=== PATIENT | male | born 1980 | race Caucasian/White ===

== ENCOUNTER 2018-08-19 05:34 | Day surgery (SDC) | payer OTHER ==
[2018-08-19] MEDS ORDERED: LR 1,000 ML IV ONE (05:50)
[2018-08-19] MEDS ORDERED: LIDOCAINE 1% 2 ML INJ ID PRN (05:50)
[2018-08-19] MEDS ORDERED: ACETAMINOPHEN 500 MG TAB PO ONE (06:08)
[2018-08-19] MEDS ORDERED: GABAPENTIN 300 MG CAP PO ONE (06:08)
[2018-08-19] MEDS ORDERED: ceFAZolin 2 GM/DEXTROSE 100 ML IV ONE (06:08)
--- NOTE | 2018-08-19 06:10 | PDHPUP ---
History & Physical Update H&P update statement: This history and physical update is based on an assessment of the patient which was completed after admission or registration (within 24 hours), but prior to the surgery/procedure. H&P update: H&P reviewed & patient examined, no change in patient's condition since H&P completed
[2018-08-19] MEDS ORDERED: CHLORHEXIDINE GLUC HIBICLENS 118 ML BTL TP ONE (06:29)
[2018-08-19] MEDS ORDERED: BUPIVACAINE 0.25% 30 ML SDV ONE (06:30)
[2018-08-19] MEDS ORDERED: THROMBIN (BOVINE) 5,000 UNIT VIAL TP ONE (06:30)
[2018-08-19] MEDS ORDERED: EPINEPHrine 1 MG/ML INJ ONE (06:31)
[2018-08-19] MEDS ORDERED: BACITRACIN 50,000 UNITS/10 ML SYR IRR ONE (06:31)
--- NOTE | 2018-08-19 06:53 | PDANEPAE ---
ANE History of Present Illness lumbar diskectomy ANE Past Medical History - Cardiovascular History Hx Hypertension: No Hx Arrhythmias: No Hx Chest Pain: No Hx Coronary Artery / Peripheral Vascular Disease: No Hx CHF / Valvular Disease: No Hx Palpitations: No - Pulmonary History Hx COPD: No Hx Asthma/Reactive Airway Disease: Yes Hx Recent Upper Respiratory Infection: No Hx Oxygen in Use at Home: No Hx Sleep Apnea: No Sleep Apnea Screening Result - Last Documented: Negative Pulmonary History Comment: ASTHMA TRIGGERS EXERCISE INDUCED NO INHALER USED FOR. 2 MONTHS. SEASONAL ALLERGIES - Neurologic History Hx Cerebrovascular Accident: No Hx Seizures: No Hx Dementia: No - Endocrine History Hx Diabetes: No - Renal History Hx Renal Disorders: No - Liver History Hx Hepatic Disorders: No - Neurological & Psychiatric Hx Hx Neurological and Psychiatric Disorders: No - Cancer History Hx Cancer: No - Congenital Disorder History Hx Congenital Disorders: No - GI History Hx Gastrointestinal Disorders: Yes Gastrointestinal History Comment: ONCE A MONTH HAS SOME DIFFICULTY WITH SWALLOWING - Other Health History Other Health History: SPINAL STENOSIS. DANIKA FOOT N/T - Chronic Pain History Chronic Pain: Yes (RT BUTTOCKS,RT KNEE) - Surgical History Prior Surgeries: WISDOM TEETH. MADDY'S ANE Review of Systems Review of Systems: - Exercise capacity METS (RN): 4 METS ANE Patient History - Allergies Allergies/Adverse Reactions: No Known Allergies Allergy (Unverified 08/18/18 15:38) - Home Medications Home medications: home medication list seen and reviewed Home Medications: ALBUTEROL SULFATE PRN 08/18/18 [Last Taken Unknown] - NPO status NPO Status: no food or drink >8 hours NPO Since - Liquids (Date): 08/18/18 NPO Since - Liquids (Time): 21:00 NPO Since - Solids (Date): 08/18/18 NPO Since - Solids (Time): 21:00 - Smoking Hx Smoking Status: Never smoked - Alcohol Use Alcohol Use: Rarely - Family Anes Hx Family Anes Hx: none Family Hx Anesthesia Complications: NEG ANE Labs/Vital Signs - Vital Signs Blood Pressure: 134/90 Heart Rate: 93 Respiratory Rate: 16 O2 Sat (%): 93 Height: 187.96 cm Weight: 95.254 kg ANE Physical Exam - Airway Neck exam: FROM Mallampati Score: Class 2 Mouth exam: normal dental/mouth exam - Pulmonary Pulmonary: no respiratory distress - Cardiovascular Cardiovascular: regular rate and rhythym - ASA Status ASA Status: I ANE Anesthesia Plan Anesthesia Plan: general endotracheal anesthesia
[2018-08-19] MEDS ORDERED: REMIFENTANIL HCL 1 MG VIAL ONE (07:06)
[2018-08-19] MEDS ORDERED: PROPOFOL/EMULSION 500 MG/50 ML BOTTLE IV ONE (07:06)
[2018-08-19] MEDS ORDERED: fentaNYL 100 MCG/2 ML INJ ONE (07:06)
[2018-08-19] MEDS ORDERED: DEXAMETHASONE 4 MG/ML VIAL ONE ×2 (07:06)
[2018-08-19] MEDS ORDERED: ONDANSETRON 4 MG/2 ML VIAL ONE (07:07)
[2018-08-19] MEDS ORDERED: LIDOCAINE 2% 100 MG/5 ML SYR ONE (07:07)
[2018-08-19] MEDS ORDERED: ePHEDrine SULFATE 25 MG/5 ML SYR ONE (08:12)
[2018-08-19] MEDS ORDERED: DEPO METHYLPREDNISOLONE 40 MG/ML SDV ONE (08:45)
[2018-08-19] MEDS ORDERED: HYDROCODONE/APAP 5/325 TAB PO PRN (09:04)
[2018-08-19] MEDS ORDERED: LR 500 ML IV PRN (09:04)
[2018-08-19] MEDS ORDERED: fentaNYL 100 MCG/2 ML INJ IVP PRN (09:04)
[2018-08-19] MEDS ORDERED: MEPERIDINE 25 MG/0.5 ML AMP IVP PRN (09:04)
[2018-08-19] MEDS ORDERED: DEXAMETHASONE 4 MG/ML VIAL IVP PRN (09:04)
[2018-08-19] MEDS ORDERED: PROMETHAZINE HCL 25 MG/ML INJ IVP PRN (09:04)
[2018-08-19] MEDS ORDERED: PHENYLEPHRINE HCL 100 MCG/ML SYR IVP PRN (09:04)
[2018-08-19] MEDS ORDERED: LABETALOL HCL 5 MG/ML 20 ML MDV IVP PRN (09:04)
[2018-08-19] MEDS ORDERED: METOCLOPRAMIDE 10 MG/2 ML VIAL IVP PRN (09:04)
[2018-08-19] MEDS ORDERED: ALBUTEROL 3 ML DEYVIAL IH PRN (09:04)
[2018-08-19] MEDS ORDERED: oxyCODONE IR 5 MG TAB PO PRN (09:04)
[2018-08-19] MEDS ORDERED: ONDANSETRON 4 MG/2 ML VIAL IVP PRN (09:04)
[2018-08-19] MEDS ORDERED: NALOXONE HCL 0.4 MG/ML INJ IVP PRN (09:04)
--- NOTE | 2018-08-19 09:31 | POSTOPPROG ---
Post Op Note Date of Operation: 08/19/18 Surgeon: Cristel Bradford [employer] Operator: TELMA Wan Anesthesiologist: MD Deny Anesthesia: GET(General Endotracheal), Local (Specify) Pre-op Diagnosis: HNP L4/5 on right Post-op Diagnosis: right L4/5 HNP/stenosis Indication: MRI and RLE pain Procedure: right L4/5 GAUTAM Findings: see op report Inf/Abcess present in the surg proc area at time of surgery?: No Depth: Deep Incisional (Fascial) EBL: 50-100 Total fluids administered: see anesthesia record Complications: none Bowel Protocol: N/A Clean Closure Performed: Yes
--- NOTE | 2018-08-19 09:35 | SOAPPROG ---
SOAP Progress Note Assessment/Plan: Post Op Visit: S: Awake and alert. NAD. Pt with expected lower back pain O: AFVSS/PERRLA/EOMI no droop CN 2-12 grossly intact +lt touch 5/5 BUE/BLE = CDI A/P: 38 yo male that is s/p right L4/5 GAUTAM -orders in place -dc when criteria is met -call with any questions or concerns -take medications as directed -seen by Dr Bradford as well -family understands and agrees Objective: Vital Signs Temp Pulse Resp BP Pulse Ox 37.1 C 93 16 134/90 H 93 08/19/18 06:17 08/19/18 06:53 08/19/18 06:53 08/19/18 06:53 08/19/18 06:53 ICD10 Worksheet Patient Problems: Problems Problem Status Onset Lumbar radicular pain Acute Lumbar stenosis Acute - ICD10 Problem Qualifiers (1) Lumbar stenosis (2) Lumbar radicular pain
[2018-08-19] MEDS ORDERED: HYDROCODONE/APAP 5/325 TAB ONE (10:02)
--- NOTE | 2018-08-19 10:40 | GOP ---
[f rep st] OPERATIVE REPORT DATE OF OPERATION: 08/19/2018 SURGEON: Jatinder Bradford MD NEUROSURGEON: Renny Bradford MD. COTTON FACTOR: Lalito Wan PA-C. PREOPERATIVE DIAGNOSIS: Herniated nucleus polyposis, L3-4, L4-5. Right lumbosacral radiculopathy. POSTOPERATIVE DIAGNOSIS: Herniated nucleus polyposis, L3-4, L4-5. Right lumbosacral radiculopathy. PROCEDURE PERFORMED: Right L4-5 hemilaminotomy, medial facetectomy with a right L4-5 microdiskectomy (11/02/2002), microscope. FINDINGS: ESTIMATED BLOOD LOSS: 25 mL. INDICATIONS: The patient is a 38-year-old gentleman with a history of some back injuries in the past , who came to see me with a terrible right L5 radiculopathy and a large prolapse of the L4-5 disk wit h an inferior disk extrusion that appeared relatively contained, reaching over to the right side, com pressing the right L5 nerve root. I suggested a microdiskectomy. He had failed conservative treatme nt and he wanted to proceed. The risk of recurrent disk herniation, nerve injury, spinal fluid leak, infection, possible need for more surgery, including surgery for recurrent disk herniation was discu ssed. He also was aware he had disk prolapse at the L3-4 level, that was eccentric more to the right than the left, but I thought this was more chronic and probably did not warrant any treatment. He w anted to proceed despite the risks of surgery. DESCRIPTION OF PROCEDURE: The patient was taken to the operating room and placed in supine position. General anesthesia was begun. He was flipped prone onto a Bruce frame. Care was taken to pad all points of contact. His back was sterilely prepped and draped in usual fashion. A localizing x-ray was taken. We made a midline 18 mm incision above the L4-5 interspace. The subcutaneous tissue was dissected using Bovie cautery down to the fascia, and a subperiosteal dissection was made down to the right L4-5 lamina. Self-retaining retractor was placed. A localizing x-ray was taken. We drilled a right L4-5 hemilaminotomy with a medial facetectomy and opened ligamentum flavum and decompressed t he right lateral recess of the spinal canal adjacent to the L5 pedicle and all the way up above the L 4-5 disk. The operating microscope was introduced and we swept the L5 nerve root medially and there was broad prolapse of the L4-5 disk at the level of the disk itself and then there was a contained fr agment contiguous with this prolapse of the disk going down to about the mid L5 pedicle level. This was firmly encased in tissue and did not want to be delivered. We incised the lateral L4-5 anulus of the disk space itself and delivered a number of very large subannular fragments coming out of the arredondo perficial prolapsed part at the L4-5 level and this nicely relaxed the L5 root and then we were able to deliver the large inferior extruded fragment in our field of view and this was delivered. We irri gated the disk space with antibiotic saline and then we used a ball-tip probe to push some additional pieces of disk down into the L4-5 disk space. On the couple pieces that we pushed, there was some i rritation and we saw a single burst of the L5 root and we delivered these fragments without difficult y. There was no trained firing, no evidence of injury. We then irrigated again with antibiotic sali ne solution. The L5 nerve root was inspected. It was free and clear of all compression and I was peralta ppy with the quality of our decompression. We then placed some Depo-Medrol with some Marcaine over t he L5 root and then closed the incision in multiple layers using Vicryl sutures. There were no compl ications. The patient tolerated the procedure well. COMPLICATIONS: None. /[id number]/MODL
[2018-08-19] MEDS ORDERED: oxyCODONE IR 5 MG TAB ONE (10:51)
[2018-08-19 12:28] VITALS: BP 140/81
== END 2018-08-19 12:35 | disposition home or self-care (01) ==
LOC: FSGY 05:34 → EDSTATUS 07:15 → FSGY 12:35
PROVIDERS: ATTEND Neurological Surgery
PROC: 8E0WXBZ Computer Assisted Procedure of Trunk Region (ICD-10-PCS; principal; 2018-08-19 07:15)
PROC: 00NY0ZZ Release Lumbar Spinal Cord, Open Approach (ICD-10-PCS; principal; 2018-08-19 07:15)
DX: M48.062 Spinal stenosis, lumbar region with neurogenic claudication (principal); M51.27 Other intervertebral disc displacement, lumbosacral region; M54.16 Radiculopathy, lumbar region
CPT/HCPCS: J0171; J0690; J1030; J1100; J2001; J2405; J2704; J3010